=== PATIENT | male | born 1940 | race Caucasian/White ===

== ENCOUNTER 2020-11-11 06:11 | Day surgery (SDC) | payer OTHER ==
[~2020-11-11] VITALS: Ht 165.1 cm; Wt 71.7 kg
[~2020-11-11 06:11] MED LIST: B-121000 MC7 PO; GLUC500 PO; HYDR1TAB94 PO; MULTI VITAMIN1 EACH PO; OMEGA-3100 MG PO; VITAMINS
--- NOTE | 2020-11-11 07:21 | NUR ---
11/11/20 0721 YULY GANDHI IV PLACEMENT TOOK 5 ATTEMPTS 1 TO THE LEFT HAND, TWO TO LEFT WIRST AND 1 TO FOREARM WERE FAILED ATTEMPTS, FINAL IV LOCATION IN LAC RUNNING WELL, PATIENT TOLERATED IV ATTEMPTED WELL
--- NOTE | 2020-11-11 08:03 | NUR ---
11/11/20 0803 Maira Napoles BUPIVACAINE 0.5% 30ML MIXED WITH EPI 0.15CC TO CONSTITUTE BUPIVACAINE 0.5% W/EPI 1:200,[address] COKER
--- NOTE | 2020-11-11 10:17 | NUR ---
11/11/20 Brandt7 Malka Salmon PT. DENIES PAIN OR DISCOMFORT. PT. SPILLED CUP OF COFFEE INTO LAP. SLIGHT REDNESS. COOL CLOTH APPLIED. DENIES PAIN OR DISCOMFORT. ASSISTED TO CLEAN UP AND DRESS. DISCHARGE INSTRUCTIONS GIVEN. DRESSING TO LEFT ARM CHANGED BY ANEESH DUE TO IT GETTING WET. TOLERATED WELL. DC HOME WITH ALL BELONGINGS.
== END 2020-11-11 10:22 | disposition home or self-care (01) ==
LOC: ORSCSDS 06:11
PROVIDERS: Orthopaedic Surgery
PROC: 01N54ZZ Release Median Nerve, Percutaneous Endoscopic Approach (ICD-10-PCS; principal; 2020-11-11 07:30)
PROC: 01N40ZZ Release Ulnar Nerve, Open Approach (ICD-10-PCS; principal; 2020-11-11 07:30)
DX: G56.22 Lesion of ulnar nerve, left upper limb (principal); G56.02 Carpal tunnel syndrome, left upper limb
CPT/HCPCS: 93005; 93010; J0171; J0690; J1100; J2370; J2405; J2704; J3010; J7120

== ENCOUNTER → 2022-01-13 | Outpatient (CLI) | payer OTHER ==
[2022-01-13 16:47] LABS: BASOPHILS ABSOLUTE AUTO 0.01 K/mm3 (0.00-0.23); BASOPHILS PERCENT AUTO 0 % (0-2); EOSINOPHILS PERCENT AUTO 0 % (0-6); Hematocrit 38.9 % (37.0-53.0); Hemoglobin 13.5 g/dL (13.5-17.5); IMMATURE GRAN PERCENT AUTO 1 % (0-1); LYMPHOCYTES ABSOLUTE AUTO 1.16 K/mm3 (0.84-5.20); LYMPHOCYTES PERCENT AUTO 11 % (21-46); MONOCYTES ABSOLUTE AUTO 0.23 K/mm3 (0.16-1.47); MONOCYTES PERCENT AUTO 2 % (4-13); Mean Corpuscular HGB 31.3 pg (26.0-34.0); Mean Corpuscular HGB Conc 34.7 g/dL (31.5-36.5); Mean Corpuscular Volume 90 fL (80-100); Mean Platelet Volume 9.9 fL (9.1-12.4); NEUTROPHILS ABSOLUTE AUTO 9.03 K/mm3 (1.96-9.15); NEUTROPHILS PERCENT AUTO 86 % (41-73); Platelet Count 318 K/mm3 (150-400); RDW Coefficient Variation 13.5 % (11.7-14.2); RDW Standard Deviation 44.6 fL (35.1-46.3); Red Blood Cell Count 4.31 M/mm3 (4.30-5.90); White Blood Cell Count 10.53 K/mm3 (4.00-11.30)
[2022-01-13 16:50] LABS: Anion Gap 12 mmol/L (6-16); Blood Urea Nitrogen 27 mg/dL (8-24); Bun/Creatinine Ratio 25.7 (12.0-20.0); CO2, Blood 25 mmol/L (21-32); Calcium, Blood 8.9 mg/dL (8.5-10.1); Chloride, Blood 104 mmol/L (98-108); Creatinine, Blood 1.05 mg/dL (0.60-1.20); Glomerular Filtration Rate >60 (60-); Glucose, Blood 144 mg/dL (70-99); Potassium, Blood 4.3 mmol/L (3.5-5.5); Sodium, Blood 141 mmol/L (136-145)
== END | disposition home or self-care (01) ==
LOC: LAB SHORT 16:38 → LAB 16:38
PROVIDERS: Physician Assistant Surgical
DX: R05.9 Cough, unspecified (principal); R06.09 Other forms of dyspnea
CPT/HCPCS: 80048; 83880; 84484; 85025